=== PATIENT | female | born 1950 | race Caucasian/White ===

== ENCOUNTER 2022-11-12 15:44 | Emergency (ER) | payer MEDICARE, OTHER ==
[~2022-11-12] VITALS: Ht 149.9 cm; Wt 63.0 kg
[~2022-11-12 15:44] MED LIST: BREX1TAB PO; BUPR300T86 PO; BUSP15TA3 PO; CLON-368 PO; ESCI-8 PO; LOP12.5T PO; LOSA50TA64 PO; METO25TA6 PO; ONDA4TAB12 PO; TRAZ-251 PO
--- NOTE | 2022-11-12 19:43 | NUR ---
The patient is a 72 year old female who presented to the ER with her from the [facility] with complaints of high anxiety not being relieved by current prescriptions. She reports increase in depression and suicidal thoughts for the past two days with a plan to use scissors. She denies that she wants to but wants to get better. She is unable to identify stressors but has been struggling with depression and anxiety for many years. She is treatment compliant and denies substance abuse. She was hospitalized at [facility] in May of this year.
[2022-11-12] MEDS ORDERED: CLON0.1T2 PO (20:00)
[2022-11-12] MEDS ORDERED: BUS15T PO (20:00)
[2022-11-12] MEDS ORDERED: DIVA-81 PO (20:00)
[2022-11-12] MEDS ORDERED: LOSA25TA96 PO (20:00)
[2022-11-12] MEDS ORDERED: METO25TA6 PO (20:00)
[2022-11-12] MEDS ORDERED: TRAZ-251 PO (20:00)
[2022-11-12] MEDS ORDERED: ESCI20TA PO (20:00)
[2022-11-12] MEDS ORDERED: LOP25T PO (20:00)
[2022-11-12] MEDS ORDERED: Trintellix PO (20:00)
[2022-11-12 20:04] LABS: BASOPHILS # (AUTO) 0.1 X10'3 (0-0.2); BASOPHILS % (AUTO) 0.9 % (0-1); EOSINOPHILS # (AUTO) 0.1 X10'3 (0-0.9); EOSINOPHILS % (AUTO) 1.1 % (0-6); HEMOGLOBIN 14.2 g/dl (12.0-16.0); LYMPHOCYTES # (AUTO) 2.7 X10'3 (1.1-4.8); LYMPHOCYTES % (AUTO) 30.1 % (21-51); MEAN CORPUSCULAR HEMOGLOBIN 32.2 PG (27.0-31.0); MEAN CORPUSCULAR HGB CONC 33.8 g/dL (33.0-36.5); MEAN CORPUSCULAR VOLUME 95.2 FL (78-98); MEAN PLATELET VOLUME 7.5 FL (7.4-10.4); MONOCYTES # (AUTO) 0.8 X10'3 (0-0.9); MONOCYTES % (AUTO) 8.5 % (2-12); NEUTROPHILS # (AUTO) 5.2 X10'3 (1.8-7.7); NEUTROPHILS % (AUTO) 59.4 % (42-75); PLATELET COUNT 276 X10'3 (140-440); RED BLOOD COUNT 4.41 X10'6 (4.20-5.60); RED CELL DISTRIBUTION WIDTH 13.8 % (11.5-14.5); WHITE BLOOD COUNT 8.8 X10'3 (4.5-11.0)
[2022-11-12 20:18] LABS: ALANINE AMINOTRANSFERASE 28 U/L (12-78); ALBUMIN 3.7 G/DL (3.4-5.0); ALBUMIN/GLOBULIN RATIO 1.2 (1.1-1.5); ALKALINE PHOSPHATASE 82 IU/L (46-116); ANION GAP 9 (8-16); ASPARTATE AMINO TRANSFERASE 18 U/L (10-37); BILIRUBIN,TOTAL 0.3 MG/DL (0.1-1.0); BLOOD UREA NITROGEN 15 MG/DL (7-18); BUN/CREATININE RATIO 13.4 (10.0-20.0); CALCIUM 8.8 MG/DL (8.5-10.1); CHLORIDE 101 MMOL/L (99-107); CREATININE 1.12 MG/DL (0.40-0.90); GLUCOSE 92 MG/DL (70-104); POTASSIUM 3.2 MMOL/L (3.5-5.1); SODIUM 139 MMOL/L (135-145); TOTAL CARBON DIOXIDE 29.3 MMOL/L (24-32); TOTAL PROTEIN 6.8 G/DL (6.4-8.2); eGFR 48 ML/MIN
[2022-11-12 20:20] LABS: ETHANOL < 0.010 GM/DL (0.0-0.010)
[2022-11-12 20:27] LABS: CLARITY,URINE CLEAR (Clear); COLOR,URINE YELLOW (Yellow); GLUCOSE, URINE NEGATIVE (Neg); KETONES,URINE TRACE mg/dl (Neg); LEUKOCYTE ESTERASE ,URINE NEGATIVE (Neg); NITRITES, URINE NEGATIVE (Neg); OCCULT BLOOD,URINE NEGATIVE (Neg); PROTEIN,URINE NEGATIVE (Neg); UROBILINOGEN,URINE 0.2 E.U/dL (0.2-1.0)
[2022-11-12 20:36] LABS: UA COLLECTION TYPE CLN CATCH MIDSTREAM
[2022-11-12 20:38] LABS: URINE AMPHETAMINE SCREEN NEGATIVE (Neg); URINE BARBITUATE SCREEN NEGATIVE (Neg); URINE BENZODIAZEPINES SCREEN NEGATIVE (Neg); URINE CANNABINOID SCREEN NEGATIVE (Neg); URINE COCAINE SCREEN NEGATIVE (Neg); URINE METHADONE SCREEN NEGATIVE (Neg); URINE OPIATE SCREEN NEGATIVE (Neg); URINE PHENCYCLIDINE SCREEN NEGATIVE (Neg)
[2022-11-12] MEDS ORDERED: potassium Cl 20 mEq SR tablet PO STA (20:53)
[2022-11-12] MEDS ORDERED: cloNIDine 0.1 mg tablet PO PRN (20:55)
[2022-11-12] MEDS ORDERED: traZODone 50mg tablet PO PRN (20:55)
[2022-11-12] MEDS ORDERED: traZODone 50mg tablet PO SCH (21:00)
[2022-11-12] MEDS ORDERED: metoprolol tartrate 25mg tablet PO SCH (21:03)
[2022-11-12] MEDS: busPIRone 15mg tablet PO SCH (21:12)
[2022-11-12] MEDS: divalproex sod 250mg ER (24-hour) tablet PO SCH (21:13)
--- NOTE | 2022-11-12 22:50 | NUR ---
The patient up to use the bathroom
--- NOTE | 2022-11-13 00:06 | NUR ---
The patient appears to be sleeping
--- NOTE | 2022-11-13 01:24 | NUR ---
The patient appears to be sleeping
--- NOTE | 2022-11-13 01:29 | NUR ---
PACKET SENT TO [facility]
--- NOTE | 2022-11-13 03:27 | NUR ---
The patient appears to be sleeping
--- NOTE | 2022-11-13 05:07 | NUR ---
The patient appears to be sleeping
[2022-11-13 06:07] VITALS: BP_DIAS 92
--- NOTE | 2022-11-13 06:45 | NUR ---
Patient was ambulatory at change of shift to . Patient now appears to be sleeping. No distress observed. Continue to monitor.
[2022-11-13] MEDS: busPIRone 15mg tablet PO SCH (08:00)
[2022-11-13] MEDS ORDERED: losartan 25mg tablet PO SCH (08:00)
[2022-11-13] MEDS ORDERED: vortioxetine HBr tablet 5 MG TABLET PO SCH (08:00)
[2022-11-13] MEDS ORDERED: ESCITALOPRAM OXALATE 5 MG TABLET PO SCH (08:00)
[2022-11-13] MEDS ORDERED: metoprolol tartrate 25mg tablet PO SCH (08:00)
[2022-11-13] MEDS: divalproex sod 250mg ER (24-hour) tablet PO SCH (08:58)
[2022-11-13 08:59] VITALS: BP_SYST 158
[2022-11-13 10:57] LABS: VALPROATE 26 UG/ML (50-100)
== END 2022-11-13 12:00 | disposition home or self-care (01) ==
LOC: ER 15:44
DX: R45.851 Suicidal ideations (principal); Z20.822 Contact with and (suspected) exposure to COVID-19; F41.9 Anxiety disorder, unspecified; F32.A Depression, unspecified; Z79.899 Other long term (current) drug therapy
CPT/HCPCS: 36415; 80053; 80164; 80305; 80320; 81003; 85025; 87811; 99285